=== PATIENT | female | born 1960 | race Caucasian/White ===

== ENCOUNTER 2022-02-14 08:03 | Outpatient (RCR) | payer BC, SELFPAY | END 2022-03-07 10:39 | disposition home or self-care (01) | LOC: HO.WCC 08:03 | PROVIDERS: PCP Internal Medicine; Visit Provider Surgery | DX: E10.622 Type 1 diabetes mellitus with other skin ulcer (principal); L97.812 Non-pressure chronic ulcer of other part of right lower leg with fat layer exposed; E10.621 Type 1 diabetes mellitus with foot ulcer; L89.899 Pressure ulcer of other site, unspecified stage; L89.619 Pressure ulcer of right heel, unspecified stage; E10.51 Type 1 diabetes mellitus with diabetic peripheral angiopathy without gangrene; M21.371 Foot drop, right foot; E10.22 Type 1 diabetes mellitus with diabetic chronic kidney disease; N18.30 Chronic kidney disease, stage 3 unspecified; Z87.891 Personal history of nicotine dependence; Z79.4 Long term (current) use of insulin; Z89.422 Acquired absence of other left toe(s) | CPT/HCPCS: 99214 ==

== ENCOUNTER 2023-11-20 15:26 | Outpatient (REF) | payer BC, SELFPAY | END 2023-11-20 15:27 | disposition home or self-care (01) | LOC: HO.LNP 15:26 | PROVIDERS: Visit Provider Surgery | DX: S91.001D Unspecified open wound, right ankle, subsequent encounter (principal) | CPT/HCPCS: 87070; 87073; 87077; 87186; 87205 ==

== ENCOUNTER 2024-02-26 13:45 | Outpatient (REF) | payer BC, SELFPAY ==
--- NOTE | ~2024-02-26 | XR_ITS ---
EXAMINATION: XR FOOT, RIGHT CLINICAL INFORMATION: Medial wound. COMPARISON: None available. TECHNIQUE: AP, lateral, and oblique views of the right foot. FINDINGS: There is bony demineralization. No fracture, dislocation or right ankle joint effusion is seen. Boehler's angle is normal. There is no calcaneal spur. No abnormal bone erosion is seen. There is no unusual degenerative change. There is soft tissue swelling of the medial right ankle and overlapping dressing material, without gas or foreign body noted. XR/XR foot RT min 3V IMPRESSION: 1. No fracture, dislocation or right ankle joint effusion is seen. 2. There is soft tissue swelling of the medial right ankle, without adjacent gas, bone erosion or periosteal thickening noted.
== END 2024-02-26 13:46 | disposition home or self-care (01) ==
LOC: HO.XRAY 13:45
PROVIDERS: PCP Internal Medicine; Visit Provider Surgery
DX: S91.301D Unspecified open wound, right foot, subsequent encounter (principal)
CPT/HCPCS: 73630

== ENCOUNTER 2024-07-05 14:58 | Outpatient (REF) | payer BC, SELFPAY ==
--- NOTE | ~2024-07-05 | MR_ITS ---
EXAMINATION: MR FOOT WITHOUT AND WITH CONTRAST, RIGHT CLINICAL INFORMATION: Nonhealing wound. Evaluate for osteomyelitis. COMPARISON: Right foot radiographs dated 02/26/2024. TECHNIQUE: MRI of the right foot was performed before and after the intravenous administration of 5.5 mL Gadavist on a high-field scanner. FINDINGS: There are both medial and lateral soft tissue wounds adjacent to the posterior calcaneus. These measure approximately 1.3 cm in AP dimension laterally and 1.2 cm in AP dimension medially. Underlying subcutaneous edema and enhancement with associated skin thickening. Findings are consistent with chronic cellulitis. No evidence of abscess formation. There is increased T2 and decreased T1 marrow signal along the plantar aspect of the calcaneal body extending posteriorly adjacent to the soft tissue ulcerations. Mild associated postcontrast enhancement. Findings are consistent with acute osteomyelitis. No acute fracture or dislocation. The ankle mortise is maintained. No talar osteochondral lesion. Intact articular cartilage. No concerning lytic or blastic osseous lesion. Thickening of the distal Achilles tendon with increased intrasubstance T2 signal distally, consistent with chronic tendinosis. No transverse tendon tear or tendon retraction. The remaining visualized flexor and extensor tendons are intact. Edema throughout the intrinsic musculature of the foot. No acute ligamentous injury. No soft tissue mass or fluid collection. No joint effusion. Intact plantar fascia. MR/MR foot RT wo/w con IMPRESSION: 1. Medial and lateral soft tissue ulcerations adjacent to the posterior calcaneus with underlying cellulitis. No abscess formation. Findings consistent with acute osteomyelitis within the adjacent plantar aspect of the calcaneal body. 2. Chronic Achilles tendinosis without a measurable tendon tear. 3. Edema throughout the intrinsic musculature of the foot, which can be seen in diabetic patients.
--- NOTE | ~2024-07-05 | XR_ITS ---
EXAMINATION: XR pre mri screening INDICATION: RT EYE SURGERY 10 YEARS AGO ? IMPLANT RETINA COMPARISON: No pertinent prior studies are currently available for comparison. TECHNIQUE: 3 views the orbits were obtained FINDINGS: No radiopaque metallic foreign bodies seen overlying the orbits. No acute bony abnormality. Visualized sinuses are well aerated and symmetric. XR/XR pre mri screening IMPRESSION: No radiopaque metallic foreign body seen overlying the orbits.
[2024-07-05] MEDS: gadobutroL 7.5 ML VIAL IVPUSH (16:48)
== END 2024-07-05 14:59 | disposition home or self-care (01) ==
LOC: HO.MRI 14:58
PROVIDERS: PCP Internal Medicine; Visit Provider Physician Assistant
DX: E11.621 Type 2 diabetes mellitus with foot ulcer (principal); L97.512 Non-pressure chronic ulcer of other part of right foot with fat layer exposed
CPT/HCPCS: 73720; A9585

== ENCOUNTER 2024-11-03 10:26 | Outpatient (RCR) | payer BC, SELFPAY ==
[2022-11-07 12:05] LABS: Estimated Average Glucose 171 mg/dL; Hemoglobin A1c % 7.6 %
[2023-02-05 15:17] LABS: MANUAL DIFF FLAG NO
[2023-02-05 15:56] LABS: Basophils Absolute Auto 0.1 X10*3/uL (0.0-0.2); Basophils Percent Auto 0.8 % (0-2); Eosinophils Absolute Auto 0.3 X10*3/uL (0.0-0.4); Eosinophils Percent Auto 3.9 % (0-4); Hematocrit 36.8 % (37.0-47.0); Imm Gran Abs Auto 0.03 X10*3/uL (0.00-0.03); Imm Gran Pct Auto 0.4 % (0.0-0.4); Lymphocytes Percent Auto 14.4 % (20-40); Mean Corpuscular HGB Conc 29.9 g/dl (31.0-35.0); Mean Corpuscular Hemoglobin 25.8 pg (27.0-33.0); Mean Corpuscular Volume 86.4 fL (80.0-98.0); Mean Platelet Volume 10.1 fL (9.4-12.3); Monocytes Absolute Auto 0.6 X10*3/uL (0.1-1.2); Monocytes Percent Auto 8.1 % (2-11); Neutrophils Absolute Auto 5.2 x10*3/uL (2.0-8.3); Neutrophils Percent Auto 72.4 % (45-73); Platelet Count 167 X10*3/uL (160-400); Red Blood Count 4.26 X10*6/uL (4.20-5.50); Red Cell Distribution Width 16.2 % (11.0-16.0); White Blood Count 7.2 X10*3/uL (4.8-10.8)
[2023-02-05 16:22] LABS: C Reactive Protein 0.23 mg/dL (< or = 0.50)
--- NOTE | ~2024-11-03 | XR_ITS ---
EXAMINATION: XR FOOT, RIGHT CLINICAL INFORMATION: Nonhealing wound COMPARISON: None available. TECHNIQUE: Right foot is imaged in 4 views. FINDINGS: There is generalized osteopenia. No focal bony destructive process or periostitis is demonstrated. There is no gas tracking in the soft tissues. There is soft tissue thickening at the Achilles insertion upper posterior calcaneus with induration in the region of the retrocalcaneal recess. The subtalar joint is unremarkable. The midfoot and forefoot show no fracture or dislocation or destructive process. XR/XR foot RT min 3V IMPRESSION: -Soft tissue thickening at Achilles insertion upper posterior calcaneus with induration in region of retrocalcaneal recess. -No focal bony destructive process or periostitis. No gas tracking in soft tissues.
== END 2024-11-04 08:00 | disposition home or self-care (01) ==
LOC: HO.WCC 10:26
PROVIDERS: Surgery; PCP Internal Medicine; Visit Provider Surgery
DX: E11.621 Type 2 diabetes mellitus with foot ulcer (principal); L97.512 Non-pressure chronic ulcer of other part of right foot with fat layer exposed; E11.51 Type 2 diabetes mellitus with diabetic peripheral angiopathy without gangrene; E11.69 Type 2 diabetes mellitus with other specified complication; M86.071 Acute hematogenous osteomyelitis, right ankle and foot; I50.22 Chronic systolic (congestive) heart failure
CPT/HCPCS: 10060; 11042; 11043; 11045; 11046; 15271; 15275; 15276; 17250; 36415; 73630; 83036; 84134; 85025; 86140; 87070; 87071; 87073; 87077; 87147; 87186; 87205; 97597; 97605; 99212; 99213; Q4187

== ENCOUNTER 2024-11-16 22:16 | Emergency (ER) | payer BC, SELFPAY ==
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
--- NOTE | 2024-11-16 22:59 | MHC.EDTECH ---
Spoke to MD Christian, called code at [phone]. MD Christian directed this internal communications writer to let them know when family arrives and then to call ME. ME was called at [phone]. ME office asked for Age and nature of patients visit to ER and that we would be called back. At 2300, church secretary still awaiting call from ME.
[2024-11-16 23:14] LABS: Glucose, Whole Blood 305 mg/dL (60-115)
[2024-11-16 23:37] VITALS: BMI 20.9
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
== END 2024-11-17 02:29 | disposition expired ==
PROVIDERS: Emergency Provider Emergency Medicine
DX: I46.9 Cardiac arrest, cause unspecified (principal); Z79.01 Long term (current) use of anticoagulants; Z79.899 Other long term (current) drug therapy
CPT/HCPCS: 82947; 96374; 96375; 99282; 99285; J0171; J3475